=== PATIENT | male | born 1980 | race Caucasian/White ===

== ENCOUNTER 2018-05-11 08:15 | Emergency (ER) | payer MEDICAID, OTHER ==
[~2018-05-11] VITALS: Ht 180.3 cm; Wt 52.0 kg
[~2018-05-11 08:15] MED LIST: DEXL60CA3 PO; NO HOME MEDS
[2018-05-11] MEDS ORDERED: ketorolac trometh inj. 60 MG/2 ML VIAL IM ONE (08:50)
[2018-05-11 09:24] VITALS: BP 113/84
[2018-05-11 09:38] LABS: URINE AMPHETAMINE SCREEN NEGATIVE (Neg); URINE BARBITUATE SCREEN NEGATIVE (Neg); URINE BENZODIAZEPINES SCREEN NEGATIVE (Neg); URINE CANNABINOID SCREEN POSITIVE (Neg); URINE COCAINE SCREEN NEGATIVE (Neg); URINE METHADONE SCREEN NEGATIVE (Neg); URINE OPIATE SCREEN NEGATIVE (Neg); URINE PHENCYCLIDINE SCREEN NEGATIVE (Neg)
== END 2018-05-11 09:24 | disposition home or self-care (01) ==
LOC: ER 08:16
DX: S60.221A Contusion of right hand, initial encounter (principal); K21.9 Gastro-esophageal reflux disease without esophagitis; F12.90 Cannabis use, unspecified, uncomplicated; Z79.899 Other long term (current) drug therapy
CPT/HCPCS: 73140; 80305; 96372; 99285; J1885

== ENCOUNTER 2018-05-14 11:36 | Emergency (ER) | payer OTHER ==
[~2018-05-14] VITALS: Ht 180.3 cm; Wt 57.3 kg
[2018-05-14 11:41] VITALS: BP 114/74
== END 2018-05-14 13:28 | disposition home or self-care (01) ==
LOC: ER 11:37
DX: M79.641 Pain in right hand (principal); K21.9 Gastro-esophageal reflux disease without esophagitis; F12.90 Cannabis use, unspecified, uncomplicated; Z79.899 Other long term (current) drug therapy; X58.XXXA Exposure to other specified factors, initial encounter; Y93.89 Activity, other specified; Y92.89 Other specified places as the place of occurrence of the external cause; Y99.8 Other external cause status
CPT/HCPCS: 99281

== ENCOUNTER 2021-01-23 13:13 | Emergency (ER) | payer MEDICAID, OTHER ==
[~2021-01-23] VITALS: Ht 180.3 cm; Wt 56.8 kg
--- NOTE | 2021-01-23 13:44 | NUR ---
Charge Nurse Estrellita notified pt's level 2 post op in triage. Complains cp, vomiting and pale. No bed available at this time but continue monitoring closely. industrial controls technician in room for EKG at this time.
[2021-01-23 14:01] LABS: BASOPHILS % (AUTO) 0.4 % (0-1); EOSINOPHILS % (AUTO) 0 % (0-6); HEMATOCRIT 37.3 % (42.0-52.0); HEMOGLOBIN 12.6 g/dl (14.0-17.9); LYMPHOCYTES # (AUTO) 0.7 X10'3 (1.1-4.8); LYMPHOCYTES % (AUTO) 5.6 % (21-51); MEAN CORPUSCULAR HGB CONC 33.6 g/dL (33.0-36.5); MEAN CORPUSCULAR VOLUME 95.2 FL (78-98); MEAN PLATELET VOLUME 9.1 FL (7.4-10.4); MONOCYTES # (AUTO) 0.5 X10'3 (0-0.9); MONOCYTES % (AUTO) 3.9 % (2-12); NEUTROPHILS # (AUTO) 10.7 X10'3 (1.8-7.7); NEUTROPHILS % (AUTO) 90.1 % (42-75); PLATELET COUNT 252 X10'3 (140-440); RED BLOOD COUNT 3.92 X10'6 (4.70-6.10); RED CELL DISTRIBUTION WIDTH 12.1 % (11.5-14.5); WHITE BLOOD COUNT 11.9 X10'3 (4.5-11.0)
[2021-01-23 14:17] LABS: ALANINE AMINOTRANSFERASE 31 U/L (12-78); ALBUMIN 3.6 G/DL (3.4-5.0); ALKALINE PHOSPHATASE 60 IU/L (46-116); ANION GAP 17 (8-16); ASPARTATE AMINO TRANSFERASE 33 U/L (10-37); BILIRUBIN,TOTAL 1.7 MG/DL (0.1-1.0); BLOOD UREA NITROGEN 15 MG/DL (7-18); BUN/CREATININE RATIO 15.8 (5.4-32.0); CALCIUM 8.7 MG/DL (8.5-10.1); CHLORIDE 106 MMOL/L (99-107); CREATININE 0.95 MG/DL (0.60-1.10); GLUCOSE 139 MG/DL (70-104); POTASSIUM 3.9 MMOL/L (3.5-5.1); SODIUM 144 MMOL/L (135-145); TOTAL CARBON DIOXIDE 21.1 MMOL/L (24-32); TOTAL PROTEIN 7.3 G/DL (6.4-8.2); eGFR 87 ML/MIN
[2021-01-23 14:21] LABS: LIPASE < 50 U/L (73-393)
[2021-01-23] MEDS ORDERED: ondansetron/PF 4mg/2ml inj IV ONE (15:05)
[2021-01-23] MEDS ORDERED: normal saline 1000ML IV soln IVB ONE (15:05)
[2021-01-23] MEDS ORDERED: iohexol 300mg/ml 100ml inj. ONE (15:27)
[2021-01-23] MEDS ORDERED: metoclopramide 5 mg/ml inj IV ONE (16:50)
[2021-01-23] MEDS ORDERED: OMEP40CA21 PO (17:27)
[2021-01-23] MEDS ORDERED: METO-292 PO (17:27)
[2021-01-23] MEDS ORDERED: CLIN-117 PO (17:27)
[2021-01-23] MEDS ORDERED: ONDA4TAB6 PO (17:27)
[2021-01-23 18:15] VITALS: BP 127/76
--- NOTE | 2021-01-26 10:43 | NUR ---
PT'S CALLED. STATES THAT ABX THAT WAS ORDERED FOR HIS VISIT ON 01/23 HE CAN NOT SWALLOW AND REQUESTED MEDICATION IN LIQUID FORM. CONSULTED WITH SOLOMON MARTINEZ, CLINDAMYCIN 75GM/5ML; 20 MLS PO TID x7 DAYS, QUANITY NEEDED WAS CALLED INTO [facility] BY [facility] PER PT'S . WAS CALLED AND NOTIFIED OF THE CHANGE OF ABX.
== END 2021-01-23 18:37 | disposition home or self-care (01) ==
LOC: ER 13:13
DX: M54.2 Cervicalgia (principal); R13.10 Dysphagia, unspecified; R10.84 Generalized abdominal pain; R11.2 Nausea with vomiting, unspecified; K21.9 Gastro-esophageal reflux disease without esophagitis; F17.200 Nicotine dependence, unspecified, uncomplicated; F12.90 Cannabis use, unspecified, uncomplicated; Z79.2 Long term (current) use of antibiotics; Z79.899 Other long term (current) drug therapy
CPT/HCPCS: 36415; 70491; 71045; 80053; 83690; 84484; 85025; 93005; 96361; 96374; 96375; 99285; J2405; J2765; J7030; Q9967

== ENCOUNTER 2022-07-05 14:35 | Emergency (ER) | payer MEDICAID ==
[~2022-07-05] VITALS: Ht 180.3 cm; Wt 59.1 kg
[~2022-07-05 14:35] MED LIST changes: +METO-292 PO; +ONDA4TAB6 PO
[2022-07-05 15:19] VITALS: BP 127/62
--- NOTE | 2022-07-05 15:44 | NUR ---
Wesly complinaing of left eye pain after using eye drops called Moxifloxacin prescribed by urgent care on 07/04/2022. Patient c/o at urgent care was possible scratch on the eye. Eye drops causing worsening of symptoms. Request eye evaluations and possible new medication.
[2022-07-05] MEDS ORDERED: proparacaine 0.5% ophthalmic drops 15ml EACHEYE ONE (16:45)
[2022-07-05] MEDS ORDERED: erythromycin ophthalmic ointment 1gm tube LEFTEYE ONE (17:15)
[2022-07-05] MEDS ORDERED: ACET-2 PO (17:52)
[2022-07-05] MEDS ORDERED: ERYT1OIN6 LEFTEYE (17:52)
[2022-07-05] MEDS ORDERED: tetanus & diphtheria toxoid (Td) vaccine 0.5ml IMVAC ONE (17:55)
[2022-07-05] MEDS ORDERED: TETanus/Pertussis (Acell)/Diphther VAC/PF (Tdap-Adult) 0.5ml syringe IMVAC ONE (18:05)
== END 2022-07-05 18:20 | disposition home or self-care (01) ==
LOC: ER 14:35
DX: T15.02XA Foreign body in cornea, left eye, initial encounter (principal); K21.9 Gastro-esophageal reflux disease without esophagitis; F12.90 Cannabis use, unspecified, uncomplicated; Z79.899 Other long term (current) drug therapy; X58.XXXA Exposure to other specified factors, initial encounter; Y93.89 Activity, other specified; Y92.89 Other specified places as the place of occurrence of the external cause; Y99.8 Other external cause status
CPT/HCPCS: 65220; 65222; 90471; 90715; 99284

== ENCOUNTER 2024-11-10 11:35 | Emergency (ER) | payer MEDICAID, OTHER ==
[~2024-11-10] VITALS: Ht 180.3 cm; Wt 60.0 kg
[~2024-11-10 11:35] MED LIST changes: -DEXL60CA3 PO; -METO-292 PO; +METR-159 PO; +ONDA-243 PO; -ONDA4TAB6 PO; +PANT40TA54 PO
[2024-11-10] MEDS: dexamethasone sod phosphate 10mg/ml inj IM STA (14:55)
[2024-11-10] MEDS: ketorolac trometh 15mg/ml vial 15 MG/ML ML IM ONE (14:55)
[2024-11-10] MEDS ORDERED: METH-798 PO (16:27)
[2024-11-10] MEDS ORDERED: PRED20TA PO (16:27)
[2024-11-10 16:39] VITALS: BP 127/80; PULSE 69; RESP 16; TEMP 98; O2SAT 99
== END 2024-11-10 16:42 | disposition home or self-care (01) ==
LOC: ER 11:36
DX: M54.16 Radiculopathy, lumbar region (principal)
CPT/HCPCS: 72100; 96372; 99284; J1100; J1885